=== PATIENT | female | born 1955 | race Caucasian/White ===

== ENCOUNTER 2019-11-15 13:42 | Observation (INO) | payer MEDICARE, OTHER ==
[2019-11-15] MEDS ORDERED: Sodium Chloride 0.9% 1,000 ML IV SCH (14:15)
[2019-11-15] MEDS ORDERED: Ketorolac 30 MG/ML SDV IVPUSH ONE (14:15)
[2019-11-15] MEDS ORDERED: Acetaminophen 500 MG Tab PO ONE (14:15)
[2019-11-15 14:29] LABS: CHLORIDE,CL 89 mEq/L (98-106); SODIUM,NA 125 mEq/L (136-145)
[2019-11-15] MEDS ORDERED: Ibuprofen 200 MG Tab PO PRN (15:28)
[2019-11-15] MEDS ORDERED: cefTRIAXone 1 GM Vial IVPUSH ONE (15:28)
[2019-11-15] MEDS ORDERED: Acetaminophen 325 MG Tab PO PRN (15:28)
[2019-11-15] MEDS ORDERED: Enoxaparin 30 MG/0.3 ML Syringe SUBCUT SCH ×2 (15:30→16:00)
[2019-11-15] MEDS ORDERED: Barium Sulfate Oral Susp 450 ML Bottle PO ONE (15:48)
[2019-11-15] MEDS ORDERED: Iopamidol 755 Mg/ML 100 ML Bottle IVPUSH ONE (15:48)
[2019-11-15] MEDS ORDERED: Enoxaparin 40 MG/0.4 ML Syringe SUBCUT SCH (16:00)
[2019-11-15] MEDS: NS + KCl 20mEq/L 1,000 ML IV SCH (16:13)
[2019-11-15] MEDS: Ketorolac 30 MG/ML SDV IVPUSH PRN (21:43)
[2019-11-16] MEDS: NS + KCl 20mEq/L 1,000 ML IV SCH ×2 (00:33→08:43)
[2019-11-16] MEDS: Ketorolac 30 MG/ML SDV IVPUSH PRN (05:33)
[2019-11-16] MEDS ORDERED: atorvaSTATin 10 MG Tab**OWN MED PO SCH ×2 (08:00)
[2019-11-16] MEDS ORDERED: LISINOPRIL HCTZ PO SCH (08:00)
[2019-11-16] MEDS ORDERED: Aspirin 81 MG Tab.EC PO SCH (08:00)
[2019-11-16] MEDS ORDERED: Hydrochlorothiazide 25 MG Tab PO SCH (08:00)
[2019-11-16] MEDS ORDERED: Lisinopril 20 MG Tab PO SCH (08:00)
[2019-11-16 13:42] VITALS: BP 96/52; PULSE 88
--- NOTE | 2019-11-16 14:02 | PCM.DCSUM1 ---
Discharge Summary - Hospital Course Free Text/Narrative:: The patient was brought into observation yesterday due to a mildly elevated white blood count as well as an elevated CRP, the patient did have a low potassium and low sodium. The patient main complaint was some lower back pain and it was unclear what was causing the pain as well as the elevation in the lab work. The patient did have a lumbar spine x-ray yesterday that showed multilevel endplate degenerative changes with slight irregularity of the vertebral body endplate most pronounced at L1 but no compression fracture or spondylolisthesis was noted. The patient also underwent a CT of the abdomen pelvis with oral contrast to rule out any acute abdominal pathology which did reveal superior endplate compression of L1 the age is indeterminate which is this patient's complaints are recent I suspect it is new. The CT also shows showed a 2.5 cm complex cystic lesion in the left mid kidney and they recommended CT renal mass protocol CT or MRI for further characterization. The patient's labs were repeated the white blood cell count is went to normal, the CRP has come down significantly. The potassium is come off at 3.3. The patient 's pain is been controlled. The patient was given Rocephin 1 g IV yesterday. The patient will be given 1 g IV of Rocephin today and she will be discharged home she will be given Percocet 5/325 mg 1 every 6 hours as needed for pain. The patient is to follow back up with Td this week in the office for referral for possible kyphoplasty. The patient is also advised to see Td for further evaluation of the kidney cystic lesion on the left as described in the CT see the CT again for complete details. All this is been discussed with the patient and she agrees with the disposition. HPI Initial Comments: As above Diagnosis: Stroke: No - Discharge Data Discharge Date: 11/16/19 Discharge Disposition: Home, Self-Care 01 Condition: Good - Referral to Home Health Primary Care Physician: Hollis Brewer PA-C - Patient Instructions Diet: Heart Healthy Diet Activity: As Tolerated Driving: Do Not Drive Showering/Bathing: May Shower Notify Provider of: Fever, Increased Pain, Nausea and/or Vomiting - Discharge Plan *PRESCRIPTION DRUG MONITORING PROGRAM REVIEWED*: Not Applicable *COPY OF PRESCRIPTION DRUG MONITORING REPORT IN PATIENT JOHN: Not Applicable Prescriptions/Med Rec: Cephalexin [Keflex] 500 mg PO TID 10 Days #30 capsule Home Medications: Home Meds Aspirin [Adult Low Dose Aspirin EC] 81 mg PO DAILY 11/15/19 [History] Cetirizine [ZyrTEC] 10 mg PO DAILY PRN 11/15/19 [History] Lisinopril/Hydrochlorothiazide [Lisinopril-Hctz 20-25 mg Tab] 1 tab PO DAILY [History] atorvaSTATin [Lipitor] 10 mg PO DAILY 11/15/19 [History] Cephalexin [Keflex] 500 mg PO TID 10 Days #30 capsule 11/16/19 [Rx] Patient Handouts: Vertebral Fracture, [id number], Urinary Tract Infection, Adult - Discharge Summary/Plan Comment DC Time >30 min.: No Discharge Summary/Plan Comment: As above - General Info Date of Service: 11/16/19 Functional Status: Reports: Pain Controlled, Tolerating Diet, Ambulating, Urinating - Review of Systems General: Reports: No Symptoms. Denies: Fever, Weakness HEENT: Reports: No Symptoms Pulmonary: Reports: No Symptoms. Denies: Shortness of Breath Cardiovascular: Reports: No Symptoms. Denies: Chest Pain Gastrointestinal: Reports: No Symptoms. Denies: Abdominal Pain, Constipation, Diarrhea, Nausea, Vomiting Genitourinary: Reports: No Symptoms Musculoskeletal: Reports: Back Pain Skin: Reports: No Symptoms. Denies: Bruising Neurological: Denies: Confusion, Headache, Numbness, Tingling Psychiatric: Reports: No Symptoms - Patient Data Vitals - Most Recent: Last Vital Signs Temp 37.1 C 11/16/19 12:00 Pulse 88 11/16/19 12:00 Resp 18 11/16/19 12:00 BP 96/52 L 11/16/19 12:00 Pulse Ox 98 11/16/19 08:00 Weight - Most Recent: 72.575 kg I&O - Last 24 hours: Intake & Output 11/15/19 11/16/19 11/16/19 22:59 06:59 14:59 Intake Total 1000 1400 Output Total 101 400 Balance -101 1000 1000 Lab Results - Last 24 hrs: Laboratory Results - last 24 hr 11/15/19 11/15/19 11/15/19 Range/Units 14:02 14:02 14:02 WBC 10.9 H (5.0-10.0) 10^3/uL RBC 4.05 (4.00-5.50) 10^6/uL Hgb 13.5 (12.0-16.0) g/dL Hct 37.8 (37.0-47.0) % MCV 93.3 (82.0-94.0) fL MCH 33.3 H (27.0-32.0) pg MCHC 35.7 (33.0-38.0) g/dL RDW Coeff of [place] 12.9 (11.0-15.0) % Plt Count 230 (150-400) 10^3/uL Neut % (Auto) 87.3 H (35-85) % Lymph % (Auto) 3.2 L (10-55) % [place] % (Auto) 9.0 (0-16) % Eos % (Auto) 0.2 (0-5) % Baso % (Auto) 0.3 (0-3) % Neut # (Auto) 9.49 H (1.80-7.00) 10^3/uL Lymph # (Auto) 0.35 L (1.00-4.80) 10^3/uL [place] # (Auto) 0.98 H (0.00-0.80) 10^3/uL Eos # (Auto) 0.02 (0.00-0.45) 10^3/uL Baso # (Auto) 0.03 10^3/uL Add Manual Diff Neutrophils % (Manual) (35-85) % Band Neutrophils % (0-5) % Lymphocytes % (Manual) (21-55) % Monocytes % (Manual) (2-12) % Eosinophils % (Manual) (0-5) % Absolute Neutrophils (1.80-7.00) 10^3/uL Lymphocytes # (Manual) (1.00-4.80) 10^3/uL Monocytes # (Manual) (0.00-0.80) 10^3/uL Eosinophils # (Manual) (0.00-0.45) 10^3/uL Sodium 125 L (136-145) mEq/L Potassium 2.9 L* D (3.5-5.0) mEq/L Chloride 89 L (98-106) mEq/L Carbon Dioxide 21 (21-32) mmol/L BUN 19 H D (7-18) mg/dL Creatinine 1.1 H (0.6-1.0) mg/dL Est Cr Clr Drug Dosing TNP Estimated GFR (MDRD) 50 L (>=60) mL/min Glucose 129 H (75-99) mg/dL Lactic Acid 1.7 (0.4-2.0) mmol/L Calcium 8.6 (8.4-10.1) mg/dL Magnesium (1.8-2.4) mg/dL Total Bilirubin 0.8 (0.0-1.0) mg/dL AST 25 (15-37) U/L ALT 37 (12-78) U/L Alkaline Phosphatase 107 (46-116) U/L C-Reactive Protein 19.6 H (0.2-0.8) mg/dL Total Protein 7.5 (6.4-8.2) g/dL Albumin 3.3 L (3.4-5.0) g/dL Urine Color (YELLOW) Urine Appearance (CLEAR) Urine pH (4.5-8.0) Ur Specific [place] (1.003-1.020) Urine Protein (NEGATIVE) mg/dL Urine Glucose (UA) (NEGATIVE) mg/dL Urine Ketones (NEGATIVE) mg/dL Urine Occult Blood (NEGATIVE) Urine Nitrite (NEGATIVE) Urine Bilirubin (NEGATIVE) Urine Urobilinogen (0.2-1.0) EU/dL Ur Leukocyte Esterase (NEGATIVE) Urine RBC (0-5) /HPF Urine WBC (0-5) /HPF Urine WBC Clumps (NOT SEEN) /HPF Ur Squamous Epith Cells (NOT SEEN) /HPF Urine Bacteria (NOT SEEN) /HPF Urinalysis Comment 11/15/19 11/15/19 11/16/19 Range/Units 15:33 19:09 06:50 WBC 7.9 (5.0-10.0) 10^3/uL RBC 3.41 L (4.00-5.50) 10^6/uL Hgb 11.2 L (12.0-16.0) g/dL Hct 32.9 L (37.0-47.0) % MCV 96.5 H (82.0-94.0) fL MCH 32.8 H (27.0-32.0) pg MCHC 34.0 (33.0-38.0) g/dL RDW Coeff of [place] 12.9 (11.0-15.0) % Plt Count 181 (150-400) 10^3/uL Neut % (Auto) (35-85) % Lymph % (Auto) (10-55) % [place] % (Auto) (0-16) % Eos % (Auto) (0-5) % Baso % (Auto) (0-3) % Neut # (Auto) (1.80-7.00) 10^3/uL Lymph # (Auto) (1.00-4.80) 10^3/uL [place] # (Auto) (0.00-0.80) 10^3/uL Eos # (Auto) (0.00-0.45) 10^3/uL Baso # (Auto) 10^3/uL Add Manual Diff Yes Neutrophils % (Manual) 63 (35-85) % Band Neutrophils % 25 H (0-5) % Lymphocytes % (Manual) 7 L (21-55) % Monocytes % (Manual) 3 (2-12) % Eosinophils % (Manual) 2 (0-5) % Absolute Neutrophils 6.95 (1.80-7.00) 10^3/uL Lymphocytes # (Manual) 0.55 L (1.00-4.80) 10^3/uL Monocytes # (Manual) 0.24 (0.00-0.80) 10^3/uL Eosinophils # (Manual) 0.16 (0.00-0.45) 10^3/uL Sodium (136-145) mEq/L Potassium (3.5-5.0) mEq/L Chloride (98-106) mEq/L Carbon Dioxide (21-32) mmol/L BUN (7-18) mg/dL Creatinine (0.6-1.0) mg/dL Est Cr Clr Drug Dosing Estimated GFR (MDRD) (>=60) mL/min Glucose (75-99) mg/dL Lactic Acid (0.4-2.0) mmol/L Calcium (8.4-10.1) mg/dL Magnesium 1.4 L (1.8-2.4) mg/dL Total Bilirubin (0.0-1.0) mg/dL AST (15-37) U/L ALT (12-78) U/L Alkaline Phosphatase (46-116) U/L C-Reactive Protein (0.2-0.8) mg/dL Total Protein (6.4-8.2) g/dL Albumin (3.4-5.0) g/dL Urine Color Dark yellow (YELLOW) Urine Appearance Cloudy (CLEAR) Urine pH 5.5 (4.5-8.0) Ur Specific [place] <= 1.005 (1.003-1.020) Urine Protein Negative (NEGATIVE) mg/dL Urine Glucose (UA) Negative (NEGATIVE) mg/dL Urine Ketones Negative (NEGATIVE) mg/dL Urine Occult Blood Moderate H (NEGATIVE) Urine Nitrite Negative (NEGATIVE) Urine Bilirubin Negative (NEGATIVE) Urine Urobilinogen 0.2 (0.2-1.0) EU/dL Ur Leukocyte Esterase Trace H (NEGATIVE) Urine RBC 0-5 (0-5) /HPF Urine WBC 50-75 H (0-5) /HPF Urine WBC Clumps Few H (NOT SEEN) /HPF Ur Squamous Epith Cells Few H (NOT SEEN) /HPF Urine Bacteria Few H (NOT SEEN) /HPF Urinalysis Comment See note 11/16/19 Range/Units 06:50 WBC (5.0-10.0) 10^3/uL RBC (4.00-5.50) 10^6/uL Hgb (12.0-16.0) g/dL Hct (37.0-47.0) % MCV (82.0-94.0) fL MCH (27.0-32.0) pg MCHC (33.0-38.0) g/dL RDW Coeff of [place] (11.0-15.0) % Plt Count (150-400) 10^3/uL Neut % (Auto) (35-85) % Lymph % (Auto) (10-55) % [place] % (Auto) (0-16) % Eos % (Auto) (0-5) % Baso % (Auto) (0-3) % Neut # (Auto) (1.80-7.00) 10^3/uL Lymph # (Auto) (1.00-4.80) 10^3/uL [place] # (Auto) (0.00-0.80) 10^3/uL Eos # (Auto) (0.00-0.45) 10^3/uL Baso # (Auto) 10^3/uL Add Manual Diff Neutrophils % (Manual) (35-85) % Band Neutrophils % (0-5) % Lymphocytes % (Manual) (21-55) % Monocytes % (Manual) (2-12) % Eosinophils % (Manual) (0-5) % Absolute Neutrophils (1.80-7.00) 10^3/uL Lymphocytes # (Manual) (1.00-4.80) 10^3/uL Monocytes # (Manual) (0.00-0.80) 10^3/uL Eosinophils # (Manual) (0.00-0.45) 10^3/uL Sodium 131 L (136-145) mEq/L Potassium 3.3 L (3.5-5.0) mEq/L Chloride 97 L (98-106) mEq/L Carbon Dioxide 24 (21-32) mmol/L BUN 17 (7-18) mg/dL Creatinine 1.0 (0.6-1.0) mg/dL Est Cr Clr Drug Dosing 57.83 Estimated GFR (MDRD) 55 L (>=60) mL/min Glucose 100 H (75-99) mg/dL Lactic Acid (0.4-2.0) mmol/L Calcium 7.5 L (8.4-10.1) mg/dL Magnesium (1.8-2.4) mg/dL Total Bilirubin (0.0-1.0) mg/dL AST (15-37) U/L ALT (12-78) U/L Alkaline Phosphatase (46-116) U/L C-Reactive Protein 11.0 H (0.2-0.8) mg/dL Total Protein (6.4-8.2) g/dL Albumin (3.4-5.0) g/dL Urine Color (YELLOW) Urine Appearance (CLEAR) Urine pH (4.5-8.0) Ur Specific [place] (1.003-1.020) Urine Protein (NEGATIVE) mg/dL Urine Glucose (UA) (NEGATIVE) mg/dL Urine Ketones (NEGATIVE) mg/dL Urine Occult Blood (NEGATIVE) Urine Nitrite (NEGATIVE) Urine Bilirubin (NEGATIVE) Urine Urobilinogen (0.2-1.0) EU/dL Ur Leukocyte Esterase (NEGATIVE) Urine RBC (0-5) /HPF Urine WBC (0-5) /HPF Urine WBC Clumps (NOT SEEN) /HPF Ur Squamous Epith Cells (NOT SEEN) /HPF Urine Bacteria (NOT SEEN) /HPF Urinalysis Comment SY Results - Last 24 hrs: Microbiology 11/15/19 14:02 Influenza Type A Antigen Screen - Final Nasopharyngeal Swab NEGATIVE INFLUENZA A VIRUS AG REFERENCE RANGE: NEGATIVE Influenza Type B Antigen Screen - Final NEGATIVE INFLUENZA B VIRUS AG REFERENCE RANGE: NEGATIVE Med Orders - Current: Current Medications Acetaminophen (Tylenol) 650 mg PO Q4H PRN PRN Reason: Pain (Mild 1-3)/fever Last Admin: 11/16/19 08:07 Dose: 650 mg Aspirin (Halfprin) 81 mg PO DAILY [facility] Last Admin: 11/16/19 08:46 Dose: 81 mg Atorvastatin Calcium (Lipitor) 10 mg PO DAILY [facility] Last Admin: 11/16/19 08:46 Dose: 10 mg Enoxaparin Sodium (Lovenox) 40 mg SUBCUT Q24H [facility] Last Admin: 11/15/19 16:12 Dose: 40 mg Potassium Chloride/Sodium Chloride (Normal Saline With 20 Meq Kcl) 1,000 mls @ 125 mls/hr IV ASDIRECTED [facility] Last Admin: 11/16/19 08:43 Dose: 125 mls/hr Ibuprofen (Motrin) 400 mg PO Q6H PRN PRN Reason: Pain (mild 1-3) Last Admin: 11/16/19 05:48 Dose: 400 mg Ketorolac Tromethamine (Toradol) 30 mg IVPUSH Q8H PRN PRN Reason: Pain Stop: 11/20/19 22:01 Last Admin: 11/16/19 05:33 Dose: 30 mg Lisinopril-Hctz 20- (25mg TabOwn Med) 1 each PO DAILY [facility] Last Admin: 11/16/19 08:46 Dose: 1 each Discontinued Medications Acetaminophen (Tylenol Extra Strength) 1,000 mg PO ONETIME ONE Stop: 11/15/19 14:16 Last Admin: 11/15/19 14:31 Dose: 1,000 mg Atorvastatin Calcium (Lipitor) 10 mg PO DAILY [facility] Barium Sulfate (Readi-Cat 2) 900 ml PO ONETIME ONE Stop: 11/15/19 15:49 Last Admin: 11/15/19 19:11 Dose: 900 ml Ceftriaxone Sodium (Rocephin) 1 gm IVPUSH ONETIME ONE Stop: 11/15/19 15:29 Last Admin: 02/21/20 16:11 Dose: 1 gm Enoxaparin Sodium (Lovenox) 30 mg SUBCUT Q24H [facility] Last Admin: 11/15/19 16:12 Dose: Not Given Enoxaparin Sodium (Lovenox) 40 mg SUBCUT Q24H [facility] Hydrochlorothiazide (Hydrochlorothiazide) 25 mg PO DAILY [facility] Sodium Chloride (Normal Saline) 1,000 mls @ 500 mls/hr IV ASDIRECTED [facility] Stop: 11/16/19 16:14 Last Admin: 11/15/19 14:29 Dose: 500 mls/hr Iopamidol (Isovue-370 (76%)) 100 ml IVPUSH ONETIME ONE Stop: 11/15/19 15:49 Last Admin: 11/15/19 19:11 Dose: 100 ml Ketorolac Tromethamine (Toradol) 30 mg IVPUSH ONETIME ONE Stop: 11/15/19 14:16 Last Admin: 11/15/19 14:30 Dose: 30 mg Lisinopril (Prinivil) 20 mg PO DAILY [facility] - Exam General: Reports: Alert, Oriented, Cooperative, No Acute Distress Neck: Reports: Supple, Trachea Midline Lungs: Reports: Clear to Auscultation, Normal Respiratory Effort Cardiovascular: Reports: Regular Rate, Regular Rhythm GI/Abdominal Exam: Normal Bowel Sounds, Soft, Non-Tender Back Exam: Reports: Normal Inspection, Full Range of Motion Extremities: Normal Inspection, Normal Range of Motion, Non-Tender, No Pedal Edema, Normal Capillary Refill Skin: Reports: Warm, Dry, Intact Neurological: Reports: No New Focal Deficit Psy/Mental Status: Reports: Alert, Normal Affect, Normal Mood
[2019-11-16] MEDS ORDERED: cefTRIAXone 1 GM Vial IVPUSH ONE (14:08)
[2019-11-16] MEDS ORDERED: Take Home: Acetaminophen/oxyCODONE 325-5 MG, 2 Tab Pack PO ONE (14:09)
[2019-11-16] MEDS ORDERED: Take Home: Cephalexin 500 MG Cap, 4 Cap Pack PO ONE (14:09)
[2019-11-16] MEDS ORDERED: Potassium Chloride 10% 20 MEQ/15 ML Soln 15 ML UD Cup PO ONE (14:11)
[2019-11-16] MEDS ORDERED: Potassium Chloride 10 MEQ Tab.ER PO ONE (14:20)
[2019-11-16] MEDS ORDERED: Acetaminophen/oxyCODONE 325-5 MG Tab PO ONE (15:14)
[2019-11-16] MEDS ORDERED: Cephalexin 500 MG Cap PO ONE (15:14)
== END 2019-11-16 15:15 | disposition home or self-care (01) ==
LOC: CC.MS 13:42 → CC.FCMC 13:42 → CC.MS 14:57 → UNDOADMOB 14:57 → CC.MS 15:28
PROVIDERS: ADMIT Physician Assistant Medical; ATTEND Family Medicine
DX: D72.829 Elevated white blood cell count, unspecified (principal); R79.82 Elevated C-reactive protein (CRP); E87.6 Hypokalemia; E87.1 Hypo-osmolality and hyponatremia; M54.5 Low back pain; R50.9 Fever, unspecified; N28.1 Cyst of kidney, acquired; I10 Essential (primary) hypertension; M51.36 Other intervertebral disc degeneration, lumbar region; M19.90 Unspecified osteoarthritis, unspecified site; F17.210 Nicotine dependence, cigarettes, uncomplicated; F17.200 Nicotine dependence, unspecified, uncomplicated; Z79.82 Long term (current) use of aspirin; Z79.899 Other long term (current) drug therapy
CPT/HCPCS: 36415; 72110; 74177; 80048; 80053; 81001; 83605; 83735; 85025; 86140; 87040; 87086; 87186; 87804; 96361; 96365; 96366; 96372; 96375; 96376; A9270-GY; G0378; J0696; J1650; J1885; J3480; J7030; Q9967

== ENCOUNTER 2020-04-18 10:25 | Emergency (ER) | payer MEDICARE, OTHER ==
[2020-04-18] MEDS ORDERED: Morphine 4 MG/ML VIAL IVPUSH ONE ×2 (10:54→12:49)
[2020-04-18] MEDS ORDERED: Ondansetron 4 MG/2 ML SDV IVPUSH STA ×2 (10:54→12:50)
--- NOTE | 2020-04-18 10:56 | EDM.PDOC ---
ED HPI GENERAL MEDICAL PROBLEM - General Chief Complaint: General Stated Complaint: right shoulder/mid back pain Time Seen by Provider: 04/18/20 10:47 Source of Information: Reports: Patient History Limitations: Reports: No Limitations - History of Present Illness INITIAL COMMENTS - FREE TEXT/NARRATIVE: This patient is a 65 year old female that presents to the ER. Patient reports that last night at 11pm she was walking up steps, when she lost her footing and fell backwards down 5 steps. She reports landing on her right side and right shoulder. Patient denies hitting her head, loc, n, v, vision changes, neck pain. Patient reports pain is at right shoulder, right upper back, and right chest. She reports it hurts to take big deep breaths. Patient reports that her right shoulder hurts to move. She reports that she was able to get up and walk after her fall. Onset Date: 04/17/20 Onset Time: 23:00 Location: Reports: Chest, Back, Upper Extremity, Right Front/Back Body Image: 1 - eccymosis 2 - pain, tenderness. 3 - pain tenderness 4 - pain, tenderness. 5 - pain, tenderness. Quality: Reports: Sharp Severity: Moderate Improves with: Reports: Immobilization Worsens with: Reports: Movement Associated Symptoms: Reports: Chest Pain (rght sided). Denies: Confusion, Cough, cough w sputum, Diaphoresis, Fever/Chills, Headaches, Loss of Appetite, Malaise, Nausea/Vomiting, Rash, Seizure, Shortness of Breath, Syncope, Weakness Right Shoulder Pain Score (Numeric/FACES): 9 - Related Data Allergies Allergy/AdvReac Type Severity Reaction Status Date / Time No Known Allergies Allergy Verified 04/18/20 10:48 Home Meds: Home Meds Aspirin [Adult Low Dose Aspirin EC] 81 mg PO DAILY 11/15/19 [History] Cetirizine [ZyrTEC] 10 mg PO DAILY PRN 11/15/19 [History] Lisinopril/Hydrochlorothiazide [Lisinopril-Hctz 20-25 mg Tab] 1 tab PO DAILY 11/15/19 [History] atorvaSTATin [Lipitor] 10 mg PO DAILY 11/15/19 [History] Calcium Carbonate [Calcium] 500 mg PO DAILY 04/18/20 [History] Cholecalciferol (Vitamin D3) [Vitamin D3] 5,000 unit PO DAILY 04/18/20 [History] Multivitamin [Multivitamins] 1 each PO DAILY 04/18/20 [History] Turmeric Root Extract [Turmeric] 500 mg PO DAILY 04/18/20 [History] Past Medical History Cardiovascular History: Reports: High Cholesterol, Hypertension - Past Surgical History GI Surgical History: Reports: Cholecystectomy Female Surgical History: Reports: Section ED ROS GENERAL - Review of Systems Review Of Systems: See Below Constitutional: Reports: No Symptoms HEENT: Reports: No Symptoms Respiratory: Reports: Other (Right side chest pain). Denies: Cough, Sputum Cardiovascular: Reports: No Symptoms. Denies: Dyspnea on Exertion, Edema, Lightheadedness, Palpitations, Syncope Endocrine: Reports: No Symptoms GI/Abdominal: Reports: No Symptoms. Denies: Abdominal Pain, Nausea, Vomiting : Reports: No Symptoms. Denies: Incontinence Musculoskeletal: Reports: Shoulder Pain (right), Back Pain (right upper), Other (right chest) Skin: Reports: Bruising (right shoulder) Neurological: Reports: No Symptoms Psychiatric: Reports: No Symptoms Hematologic/Lymphatic: Reports: No Symptoms Immunologic: Reports: No Symptoms ED EXAM, GENERAL - Physical Exam Exam: See Below Exam Limited By: No Limitations General Appearance: Alert, WD/WN, No Apparent Distress, Other (in pain. holding right shoulder in arm sling position) Eye Exam: Bilateral Eye: EOMI, Normal Inspection, PERRL Ears: Normal External Exam, Normal Canal, Hearing Grossly Normal, Normal TMs Ear Exam: Bilateral Ear: Auricle Normal, Canal Normal, TM normal Nose: Normal Inspection, Normal Mucosa, No Blood Throat/Mouth: Normal Inspection, Normal Lips, Normal Teeth, Normal Gums, Normal Oropharynx, Normal Voice, No Airway Compromise Head: Atraumatic, Normocephalic. No: Facial Swelling, Facial Tenderness, Sinus Tenderness Neck: Normal Inspection, Supple, Non-Tender, Full Range of Motion. No: Tender Lateral, Tender Midline Respiratory/Chest: No Accessory Muscle Use, Rhonchi (throughout), Splinting (right side), Other (Right lateral chest tenderness over multiple ribs.). No: Decreased Breath Sounds, Accessory Muscle Use Cardiovascular: Normal Peripheral Pulses, Regular Rate, Rhythm, No Edema, No Gallop, No JVD, No Murmur, No Rub Peripheral Pulses: 2+: Radial (L), Radial (R), Posterior Tibial (L), Posterior Tibial (R) GI/Abdominal: Non-Tender, No Organomegaly, Pelvis Stable (Female) Exam: Deferred Rectal (Female) Exam: Deferred Back Exam: Normal Inspection, Full Range of Motion, Other (Tenderness over the right posterior scapula.). No: CVA Tenderness (L), CVA Tenderness (R), Decreased Range of Motion, Muscle Spasm, Paraspinal Tenderness, Vertebral Tenderness Extremities: No Pedal Edema, Normal Capillary Refill, Limited Range of Motion (Right shoulder in arm sling position, pain, tenderness anterior and posterior. Ecchymosis top of shoulder. ), Other (pulses +2, cap refill < 2 sec. Sensory intact. Patient does have some ROM to the right shoulder, but very limited due to pain.) Neurological: Alert, Oriented, CN II-XII Intact, Normal Cognition, Normal Gait, No Motor/Sensory Deficits Psychiatric: Anxious, Tearful Skin Exam: Warm, Dry, Intact, No Rash, Ecchymosis (top of right shoulder) Lymphatic: No Adenopathy EKG INTERPRETATION EKG Date: 04/18/20 Time: 12:42 Rate (Beats/Min): 64 ST-T: Normal Comparison: NA - No Prior EKG Course - Vital Signs Last Recorded V/S: Last Vital Signs Temp 97.2 F 04/18/20 10:30 Pulse 81 04/18/20 10:30 Resp 20 04/18/20 10:30 BP 126/72 04/18/20 10:30 Pulse Ox 93 L 04/18/20 11:57 - Orders/Labs/Meds Orders: Active Orders 24 hr Category Date Time Status Cervical Spine wo Cont [CT] Stat Exams 04/18/20 12:01 Taken Head wo Cont [CT] Stat Exams 04/18/20 12:01 Taken Ribs 2V w Chest Rt [CR] Stat Exams 04/18/20 10:56 Taken Scapula Rt [CR] Stat Exams 04/18/20 10:56 Taken Shoulder Comp Rt [CR] Stat Exams 04/18/20 10:56 Taken Sodium Chloride 0.9% [Normal Saline] 1,000 ml Med 04/18/20 12:38 Active IV .BOLUS Medication Orders Sodium Chloride (Normal Saline) 1,000 mls @ 1,000 mls/hr IV .BOLUS ONE Stop: 04/18/20 13:37 Last Admin: 04/18/20 12:52 Dose: 1,000 mls/hr Documented by: MOUNA Labs: Laboratory Tests 04/18/20 04/18/20 04/18/20 Range/Units 11:57 11:57 11:57 WBC 15.7 H (5.0-10.0) 10^3/uL RBC 4.23 (4.00-5.50) 10^6/uL Hgb 14.1 (12.0-16.0) g/dL Hct 39.1 (37.0-47.0) % MCV 92.4 (82.0-94.0) fL MCH 33.3 H (27.0-32.0) pg MCHC 36.1 (33.0-38.0) g/dL RDW Coeff of Marvin 11.9 (11.0-15.0) % Plt Count 357 (150-400) 10^3/uL Neut % (Auto) 90.3 H (35-85) % Lymph % (Auto) 4.8 L (10-55) % [place] % (Auto) 4.7 (0-16) % Eos % (Auto) 0.1 (0-5) % Baso % (Auto) 0.1 (0-3) % Neut # (Auto) 14.18 H (1.80-7.00) 10^3/uL Lymph # (Auto) 0.75 L (1.00-4.80) 10^3/uL [place] # (Auto) 0.73 (0.00-0.80) 10^3/uL Eos # (Auto) 0.01 (0.00-0.45) 10^3/uL Baso # (Auto) 0.02 10^3/uL PT 9.8 (9.7-12.3) SEC INR 0.97 (0.92-1.18) Sodium 122 L* (136-145) mEq/L Potassium 3.2 L (3.5-5.0) mEq/L Chloride 85 L (98-106) mEq/L Carbon Dioxide 26 (21-32) mmol/L BUN 7 (7-18) mg/dL Creatinine 0.7 (0.6-1.0) mg/dL Est Cr Clr Drug Dosing 81.50 mL/min Estimated GFR (MDRD) > 60 (>=60) mL/min Glucose 124 H (75-99) mg/dL Calcium 8.7 (8.4-10.1) mg/dL Total Bilirubin 0.9 (0.0-1.0) mg/dL AST 38 H (15-37) U/L ALT 29 (12-78) U/L Alkaline Phosphatase 81 (46-116) U/L Lactate Dehydrogenase 216 H (100-190) U/L Creatine Kinase 896 H (21-215) U/L Troponin I < 0.017 (0.00-0.06) ng/mL Total Protein 7.7 (6.4-8.2) g/dL Albumin 3.9 (3.4-5.0) g/dL Amylase 59 (25-115) U/L Lipase 77 (73-393) U/L Meds: Medications Generic Name Dose Route Start Last Admin Trade Name Freq PRN Reason Stop Dose Admin Sodium Chloride 1,000 mls @ 1,000 mls/hr 04/18/20 12:38 04/18/20 12:52 Normal Saline IV 04/18/20 13:37 1,000 mls/hr .BOLUS ONE Administration Discontinued Medications Generic Name Dose Route Start Last Admin Trade Name Freq PRN Reason Stop Dose Admin Morphine Sulfate 4 mg 04/18/20 10:54 04/18/20 11:00 Morphine IVPUSH 04/18/20 10:55 4 mg ONETIME ONE Administration Morphine Sulfate 4 mg 04/18/20 12:49 04/18/20 13:03 Morphine IVPUSH 04/18/20 12:50 4 mg ONETIME ONE Administration Ondansetron HCl 4 mg 04/18/20 10:54 04/18/20 11:00 Zofran IVPUSH 04/18/20 10:55 4 mg NOW STA Administration Ondansetron HCl 8 mg 04/18/20 12:50 04/18/20 13:02 Zofran IVPUSH 04/18/20 12:51 8 mg NOW STA Administration - Radiology Interpretation Free Text/Narrative:: Chest with right ribs xray: there are fractures involving the posterior aspects of the fourth, fifth, as well as the lateral aspect of the sixth rib with only minimal displacement. No visible pneumothorax. No effusion is seen. There is minimal atelectasis or scarring in the left lung base. Cardiac silhouette is unremarkable. Scapula: Scapula fracture Shoulder: I do not see fracture of shoulder/humerus. - Re-Assessments/Exams Free Text/Narrative Re-Assessment/Exam: 04/18/20 11:58 Patient reports her pain is now a 5/10, was 10/10 upon exam. Patient oxygen sat uration is now 88-91% on RA, RN applied 2L NC. color television console monitor applied by RN. I reviewed images. Multiple fractures. Patient trauma code activated once images reviewed and desaturation after pain medication with multiple rib fractures. lab was ordered. CTs of the head and cervical will be done, as now patient is unaware if she hit her head or not. She is alert and oriented at this time. 04/18/20 11:59 I called and spoke to Dr. Pastrana at [facility] ER about this patient. He has accepted the transfer. Will transfer this patient. I then went and spoke to the patient about this, she has agreed to the transfer. ALS transfer was paged out. 04/18/20 12:10 EMS called and reported they are just waiting on a staff member to arrive to transport patient. 04/18/20 12:39 RN informed me of critical sodium of 122, I called [facility] again to see what treatment they would like for this. NS 1 L Bolus to be given. Patient does report that she drinks "occasionally" She reports drinking a few [place] coolers last night. Rn reports patient vomited x2 after medications and having more pain again. Gave more morphine and zofran. 04/18/20 13:03 I called and spoke to patient Vini is who patient wanted me to speak too. He was picking her some items at home and is right outside door. He agrees with transfer. Departure - Departure Time of Disposition: 12:39 Disposition: Home, Self-Care 01 Condition: Serious Clinical Impression: Trauma, Hyponatremia Right scapula fracture Qualifiers: Encounter type: initial encounter Scapula location: unspecified part of scapula Fracture type: closed Qualified Code(s): S42.101A - Fracture of unspecified part of scapula, right shoulder, initial encounter for closed fracture Multiple rib fractures Qualifiers: Encounter type: initial encounter Fracture type: closed Laterality: right Qualified Code(s): S22.41XA - Multiple fractures of ribs, right side, initial encounter for closed fracture - Discharge Information *PRESCRIPTION DRUG MONITORING PROGRAM REVIEWED*: Not Applicable *COPY OF PRESCRIPTION DRUG MONITORING REPORT IN PATIENT JOHN: Not Applicable Referrals: Hollis Brewer PA-C [Primary Care Provider] - Forms: ED Department Discharge Sepsis Event Note (ED) - Evaluation Sepsis Screening Result: No Definite Risk - Focused Exam Vital Signs: Vital Signs Temp Pulse Resp BP Pulse Ox Pulse Ox 04/18/20 11:57 93 L 04/18/20 10:30 97.2 F 81 20 126/72 97 - My Orders Last 24 Hours: My Active Orders 04/18/20 10:56 Ribs 2V w Chest Rt [CR] Stat Scapula Rt [CR] Stat Shoulder Comp Rt [CR] Stat 04/18/20 12:01 Cervical Spine wo Cont [CT] Stat Head wo Cont [CT] Stat 04/18/20 12:38 Sodium Chloride 0.9% [Normal Saline] 1,000 ml IV .BOLUS - Assessment/Plan Last 24 Hours: My Active Orders 04/18/20 10:56 Ribs 2V w Chest Rt [CR] Stat Scapula Rt [CR] Stat Shoulder Comp Rt [CR] Stat 04/18/20 12:01 Cervical Spine wo Cont [CT] Stat Head wo Cont [CT] Stat 04/18/20 12:38 Sodium Chloride 0.9% [Normal Saline] 1,000 ml IV .BOLUS Plan: [PLEASE SEE RN NOTE FOR PFSH. Patient is being transferred to [facility]. Risk vs benefits explained to the patient and she has agreed to the transfer. Risk of transfer are mvc, , shortness of breath, cardiac arrest. The risk of staying in [place] is no trauma team, , worsening of condition. They benefits of transfer are higher level of care, trauma team. The benefits of staying in [place] is close to home.
[2020-04-18 12:21] LABS: CHLORIDE,CL 85 mEq/L (98-106)
[2020-04-18 12:25] LABS: SODIUM,NA 122 mEq/L (136-145)
[2020-04-18] MEDS ORDERED: Sodium Chloride 0.9% 1,000 ML IV ONE (12:38)
== END 2020-04-18 13:22 | disposition home or self-care (01) ==
LOC: CC.ED 10:25
DX: S22.41XA Multiple fractures of ribs, right side, initial encounter for closed fracture (principal); S42.101A Fracture of unspecified part of scapula, right shoulder, initial encounter for closed fracture; E87.1 Hypo-osmolality and hyponatremia; I10 Essential (primary) hypertension; E78.00 Pure hypercholesterolemia, unspecified; R11.10 Vomiting, unspecified; Z98.890 Other specified postprocedural states; Z79.82 Long term (current) use of aspirin; Z79.899 Other long term (current) drug therapy; W10.8XXA Fall (on) (from) other stairs and steps, initial encounter; Y93.01 Activity, walking, marching and hiking
CPT/HCPCS: 36415; 70450; 71101-RT; 72125; 73010-RT; 73030-RT; 80053; 82150; 82550; 83615; 83690; 84484; 85025; 85610; 93005; 94761; 96374; 96375; 96376; 99284; 99284-25; J2270; J2405; J7030

== ENCOUNTER 2022-02-03 15:53 | Observation (INO) | payer MEDICARE, OTHER ==
[2022-02-03 16:17] LABS: CHLORIDE,CL 89 mEq/L (98-106); SODIUM,NA 126 mEq/L (136-145)
[2022-02-03] MEDS ORDERED: Ondansetron 4 MG/2 ML SDV IVPUSH PRN (17:32)
[2022-02-03] MEDS: Pantoprazole 40 MG Vial IVPUSH SCH (17:44)
[2022-02-03] MEDS: Ondansetron 4 MG/2 ML SDV IV ONE (17:44)
[2022-02-03] MEDS: Sodium Chloride 0.9% 1,000 ML IV SCH ×2 (17:51→23:26)
[2022-02-03] MEDS: Levofloxacin/Dextrose 5%-Water 750 MG in Premix Bag 1 BAG IV SCH (17:51)
[2022-02-03] MEDS ORDERED: Ketorolac 30 MG/ML SDV IVPUSH PRN (19:42)
[2022-02-03] MEDS: Acetaminophen 325 MG Tab PO PRN (19:54)
[2022-02-04 07:36] LABS: CHLORIDE,CL 96 mEq/L (98-106); SODIUM,NA 130 mEq/L (136-145)
[2022-02-04] MEDS ORDERED: Aspirin 81 MG Tab.EC PO SCH (08:00)
[2022-02-04] MEDS ORDERED: Hydrochlorothiazide 25 MG Tab PO SCH (08:00)
[2022-02-04] MEDS ORDERED: Lisinopril 20 MG Tab PO SCH (08:00)
[2022-02-04] MEDS: Potassium Chloride 10 MEQ Tab.ER PO SCH (08:44)
[2022-02-04] MEDS ORDERED: atorvaSTATin 10 MG Tab PO SCH (20:00)
== END 2022-02-04 14:00 | disposition home or self-care (01) ==
LOC: CC.MS 15:53 → CC.FCMC 15:53 → CC.MS 16:48 → UNDOADMOB 16:48 → CC.MS 16:53
PROVIDERS: ADMIT Nurse Practitioner Family; ATTEND Nurse Practitioner Family
DX: N39.0 Urinary tract infection, site not specified (principal); E87.1 Hypo-osmolality and hyponatremia; R31.9 Hematuria, unspecified; E78.00 Pure hypercholesterolemia, unspecified; I10 Essential (primary) hypertension; F17.200 Nicotine dependence, unspecified, uncomplicated; Z79.82 Long term (current) use of aspirin; Z79.899 Other long term (current) drug therapy
CPT/HCPCS: 36415; 80053; 81001; 82150; 85025; 86140; 87086; 87088; 87186; 96365; A9270-GY; G0378; J1956; J7030

== ENCOUNTER 2023-11-01 09:03 | Emergency (ER) | payer MEDICARE ==
[2023-11-01] MEDS: HYDROmorphone 0.5 MG/0.5 ML Syringe IVPUSH ONE (09:56)
[2023-11-01] MEDS: Ondansetron 4 MG/2 ML SDV IVPUSH PRN (09:57)
== END 2023-11-01 10:58 | disposition home or self-care (01) ==
LOC: CC.ED 09:03
DX: S42.291A Other displaced fracture of upper end of right humerus, initial encounter for closed fracture (principal); I10 Essential (primary) hypertension; E78.00 Pure hypercholesterolemia, unspecified; F17.210 Nicotine dependence, cigarettes, uncomplicated; Z90.710 Acquired absence of both cervix and uterus; Z90.49 Acquired absence of other specified parts of digestive tract; Z79.82 Long term (current) use of aspirin; Z79.899 Other long term (current) drug therapy; W00.9XXA Unspecified fall due to ice and snow, initial encounter
CPT/HCPCS: 73060-LT; 96374; 96375; 99283-25; J1170; J2405

== ENCOUNTER 2024-09-25 12:24 | Inpatient (IN) | payer MEDICARE ==
[2024-09-25] MEDS: Ondansetron 4 MG/2 ML SDV IVPUSH STA (12:55)
[2024-09-25] MEDS: Sodium Chloride 0.9% 1,000 ML IV ONE ×2 (12:55→14:58)
[2024-09-25 13:10] LABS: BILIRUBIN TOTAL 0.5 mg/dL (0.0-1.0); C-REACTIVE PROTEIN 3.96 mg/dL (<=0.50); CALCIUM 9.4 mg/dL (8.4-10.1); CREATININE 2.5 mg/dL (0.6-1.0); EST CRCL DRUG DOSING (CG) 21.19 mL/min; MAGNESIUM 1.8 mg/dL (1.8-2.4); PROTEIN TOTAL,TP 8.8 g/dL (6.4-8.2)
[2024-09-25 13:39] LABS: POTASSIUM,K 3.5 mEq/L (3.5-5.0)
[2024-09-25 14:11] LABS: TSH ULTRASENSITIVE 2.97 uIU/mL (0.36-5.60)
[2024-09-25 14:42] LABS: BASOPHILS ABSOLUTE AUTO 0.05 10^3/uL (0.00-0.50); BASOPHILS PERCENT AUTO 0.3 % (0-1); HEMATOCRIT 47.5 % (37.0-47.0); HEMOGLOBIN 16.3 g/dL (12.0-16.0); IMMATURE GRAN ABSOLUTE AUTO 0.05 10^3/uL (0.00-0.49); IMMATURE GRAN PERCENT AUTO 0.3 % (0.0-4.9); LYMPHOCYTES ABSOLUTE AUTO 0.96 10^3/uL (0.60-5.00); LYMPHOCYTES PERCENT AUTO 5.6 % (24-44); MEAN CORPUSCULAR HEMOGLOBIN 33.1 pg (27.0-32.0); MEAN CORPUSCULAR HGB CONC 34.3 g/dL (32.0-36.0); MEAN CORPUSCULAR VOLUME 96.3 fL (83.0-97.0); MONOCYTES ABSOLUTE AUTO 1.98 10^3/uL (0.00-1.50); MONOCYTES PERCENT AUTO 11.6 % (0-10); NEUTROPHILS PERCENT AUTO 82.2 % (41-71); PLATELET COUNT,PLT 246 10^3/uL (150-400); RED BLOOD CELL COUNT 4.93 x10^6/uL (4.00-5.50); WHITE BLOOD CELL COUNT,WBC 17.1 10^3/uL (4.0-11.0)
[2024-09-25] MEDS ORDERED: Ondansetron 4 MG/2 ML SDV IV PRN (15:08)
[2024-09-25] MEDS ORDERED: Ondansetron 4 MG Tab.DIS PO PRN (15:08)
[2024-09-25] MEDS ORDERED: Loratadine 10 MG Tab PO PRN (15:08)
[2024-09-25] MEDS ORDERED: Morphine 2 MG/ML SYRINGE IVPUSH PRN (15:08)
[2024-09-25] MEDS: Sodium Chloride 0.9% 1,000 ML IV SCH (17:13)
[2024-09-25 19:14] LABS: BILIRUBIN TOTAL 0.3 mg/dL (0.0-1.0); CALCIUM 7.9 mg/dL (8.4-10.1); EST CRCL DRUG DOSING (CG) 26.49 mL/min; POTASSIUM,K 3.2 mEq/L (3.5-5.0); PROTEIN TOTAL,TP 6.7 g/dL (6.4-8.2)
[2024-09-25] MEDS: Potassium Chloride 20 MEQ Tab.ER PO ONE (19:30)
[2024-09-26] MEDS: Loperamide 2 MG Cap PO PRN (01:05)
[2024-09-26 01:44] LABS: APPEARANCE,URINE CLEAR (CLEAR); BILIRUBIN,URINE NEGATIVE (NEGATIVE); COLOR,URINE YELLOW (YELLOW); GLUCOSE,URINE NEGATIVE (NEGATIVE); KETONES,URINE NEGATIVE (NEGATIVE); LEUKOCYTE ESTERASE,URINE NEGATIVE (NEGATIVE); NITRITE,URINE NEGATIVE (NEGATIVE); OCCULT BLOOD,URINE MODERATE (NEGATIVE); PH,URINE 5.5 (4.5-8.0); PROTEIN,URINE TRACE mg/dL (NEGATIVE); UROBILINOGEN,URINE 0.2 EU/dL (0.2-1.0)
[2024-09-26 01:45] LABS: BACTERIA,URINE OCCASIONAL /HPF (NOT SEEN); RBC,URINE 0-5 /HPF (0-5); SQUAMOUS EPITHELIAL CELLS,UR NOT SEEN /HPF (NOT SEEN); WBC,URINE NOT SEEN /HPF (0-5)
[2024-09-26] MEDS: Acetaminophen 325 MG Tab PO PRN (03:21)
[2024-09-26 07:27] LABS: BASOPHILS ABSOLUTE AUTO 0.03 10^3/uL (0.00-0.50); BASOPHILS PERCENT AUTO 0.3 % (0-1); HEMATOCRIT 38.8 % (37.0-47.0); HEMOGLOBIN 13.3 g/dL (12.0-16.0); IMMATURE GRAN ABSOLUTE AUTO 0.03 10^3/uL (0.00-0.49); IMMATURE GRAN PERCENT AUTO 0.3 % (0.0-4.9); LYMPHOCYTES ABSOLUTE AUTO 0.99 10^3/uL (0.60-5.00); LYMPHOCYTES PERCENT AUTO 9.5 % (24-44); MEAN CORPUSCULAR HEMOGLOBIN 33.6 pg (27.0-32.0); MEAN CORPUSCULAR HGB CONC 34.3 g/dL (32.0-36.0); MONOCYTES ABSOLUTE AUTO 1.16 10^3/uL (0.00-1.50); MONOCYTES PERCENT AUTO 11.2 % (0-10); NEUTROPHILS ABSOLUTE AUTO 8.18 x10^3/uL (1.80-8.00); NEUTROPHILS PERCENT AUTO 78.7 % (41-71); PLATELET COUNT,PLT 154 10^3/uL (150-400); RED BLOOD CELL COUNT 3.96 x10^6/uL (4.00-5.50); WHITE BLOOD CELL COUNT,WBC 10.4 10^3/uL (4.0-11.0)
[2024-09-26] MEDS: Calcium Carbonate 500 MG Tab.Chew PO SCH (07:46)
[2024-09-26] MEDS: Lisinopril 20 MG Tab PO SCH (07:46)
[2024-09-26] MEDS: Cholecalciferol (Vitamin D3) 5,000 UNIT Tab PO SCH (07:46)
[2024-09-26] MEDS: atorvaSTATin 10 MG Tab PO SCH (07:46)
[2024-09-26] MEDS: Multivitamin Tab PO SCH (07:46)
[2024-09-26 08:03] LABS: ALBUMIN 2.9 g/dL (3.4-5.0); BILIRUBIN TOTAL 0.3 mg/dL (0.0-1.0); CREATININE 1.2 mg/dL (0.6-1.0); EST CRCL DRUG DOSING (CG) 44.16 mL/min; MAGNESIUM 1.6 mg/dL (1.8-2.4); PROTEIN TOTAL,TP 6.6 g/dL (6.4-8.2)
[2024-09-26] MEDS: Magnesium Oxide 400 MG Tab PO SCH (11:28)
[2024-09-26] MEDS: metroNIDAZOLE/Normal Saline 500 MG in Premix Bag 1 BAG IV SCH (14:00)
[2024-09-26] MEDS: Lactobacillus Rhamnosus GG (Probiotic) Cap PO SCH (19:32)
[2024-09-26 22:41] LABS: URINE SODIUM 63 mEq/L
[2024-09-27 07:16] LABS: ALBUMIN 2.7 g/dL (3.4-5.0); BILIRUBIN TOTAL 0.2 mg/dL (0.0-1.0); CALCIUM 8.2 mg/dL (8.4-10.1); CREATININE 0.8 mg/dL (0.6-1.0); EST CRCL DRUG DOSING (CG) 66.24 mL/min; MAGNESIUM 1.4 mg/dL (1.8-2.4); POTASSIUM,K 3.4 mEq/L (3.5-5.0); PROTEIN TOTAL,TP 6.6 g/dL (6.4-8.2)
[2024-09-27 07:23] LABS: BASOPHILS ABSOLUTE AUTO 0.03 10^3/uL (0.00-0.50); BASOPHILS PERCENT AUTO 0.4 % (0-1); HEMATOCRIT 36.7 % (37.0-47.0); HEMOGLOBIN 12.6 g/dL (12.0-16.0); IMMATURE GRAN ABSOLUTE AUTO 0.03 10^3/uL (0.00-0.49); IMMATURE GRAN PERCENT AUTO 0.4 % (0.0-4.9); LYMPHOCYTES ABSOLUTE AUTO 0.92 10^3/uL (0.60-5.00); LYMPHOCYTES PERCENT AUTO 11.9 % (24-44); MEAN CORPUSCULAR HEMOGLOBIN 33.1 pg (27.0-32.0); MEAN CORPUSCULAR HGB CONC 34.3 g/dL (32.0-36.0); MEAN CORPUSCULAR VOLUME 96.3 fL (83.0-97.0); MONOCYTES ABSOLUTE AUTO 0.68 10^3/uL (0.00-1.50); MONOCYTES PERCENT AUTO 8.8 % (0-10); NEUTROPHILS ABSOLUTE AUTO 6.09 x10^3/uL (1.80-8.00); NEUTROPHILS PERCENT AUTO 78.5 % (41-71); PLATELET COUNT,PLT 152 10^3/uL (150-400); RED BLOOD CELL COUNT 3.81 x10^6/uL (4.00-5.50); WHITE BLOOD CELL COUNT,WBC 7.8 10^3/uL (4.0-11.0)
[2024-09-27] MEDS: Potassium Chloride 20 MEQ Tab.ER PO SCH (09:35)
[2024-09-27] MEDS: Magnesium Sulfate/Water Premix 2 GM in Premix Bag 1 BAG IV ONE (09:35)
[2024-09-27] MEDS: Levofloxacin 500 MG Tab PO SCH (12:50)
[2024-09-28 07:38] LABS: BASOPHILS ABSOLUTE AUTO 0.03 10^3/uL (0.00-0.50); BASOPHILS PERCENT AUTO 0.7 % (0-1); EOSINOPHILS ABSOLUTE AUTO 0.01 10^3/uL (0.00-1.50); EOSINOPHILS PERCENT AUTO 0.2 % (0-6); HEMATOCRIT 36.8 % (37.0-47.0); HEMOGLOBIN 12.8 g/dL (12.0-16.0); IMMATURE GRAN ABSOLUTE AUTO 0.01 10^3/uL (0.00-0.49); IMMATURE GRAN PERCENT AUTO 0.2 % (0.0-4.9); LYMPHOCYTES ABSOLUTE AUTO 0.89 10^3/uL (0.60-5.00); MEAN CORPUSCULAR HEMOGLOBIN 33.3 pg (27.0-32.0); MEAN CORPUSCULAR HGB CONC 34.8 g/dL (32.0-36.0); MEAN CORPUSCULAR VOLUME 95.8 fL (83.0-97.0); MONOCYTES ABSOLUTE AUTO 0.47 10^3/uL (0.00-1.50); MONOCYTES PERCENT AUTO 11.1 % (0-10); NEUTROPHILS ABSOLUTE AUTO 2.83 x10^3/uL (1.80-8.00); NEUTROPHILS PERCENT AUTO 66.8 % (41-71); PLATELET COUNT,PLT 167 10^3/uL (150-400); RED BLOOD CELL COUNT 3.84 x10^6/uL (4.00-5.50); WHITE BLOOD CELL COUNT,WBC 4.2 10^3/uL (4.0-11.0)
[2024-09-28 08:09] LABS: ALBUMIN 2.7 g/dL (3.4-5.0); BILIRUBIN TOTAL 0.3 mg/dL (0.0-1.0); CALCIUM 8.3 mg/dL (8.4-10.1); CREATININE 0.8 mg/dL (0.6-1.0); EST CRCL DRUG DOSING (CG) 66.24 mL/min; MAGNESIUM 1.5 mg/dL (1.8-2.4); POTASSIUM,K 3.6 mEq/L (3.5-5.0); PROTEIN TOTAL,TP 6.7 g/dL (6.4-8.2)
== END 2024-09-28 10:52 | disposition home or self-care (01) | DRG 683 ==
LOC: CC.ED 12:24 → CC.MS 14:24 → CC.ED 14:28 → CC.MS 14:28 → UNDOADMIN 14:28
PROVIDERS: ADMIT Nurse Practitioner; ATTEND Physician Assistant Medical
DX: N17.9 Acute kidney failure, unspecified (principal); E87.1 Hypo-osmolality and hyponatremia; E78.00 Pure hypercholesterolemia, unspecified; I10 Essential (primary) hypertension; F17.210 Nicotine dependence, cigarettes, uncomplicated; F15.90 Other stimulant use, unspecified, uncomplicated; E86.0 Dehydration; E87.6 Hypokalemia; E86.1 Hypovolemia; R19.7 Diarrhea, unspecified; R05.3 Chronic cough; E83.42 Hypomagnesemia; Z98.891 History of uterine scar from previous surgery; Z79.899 Other long term (current) drug therapy; Z79.02 Long term (current) use of antithrombotics/antiplatelets; Z90.49 Acquired absence of other specified parts of digestive tract; Z90.710 Acquired absence of both cervix and uterus
CPT/HCPCS: 36415; 70450; 71046; 74176; 80053; 81001; 83690; 83735; 83930; 83935; 84300; 84443; 85025; 86140; 87045; 87046; 87428-QW; 87493; 93010; 96361; 96374; 99223; 99232; 99233; 99239; 99285-25; A9270-GY; J1836; J2405; J3475; J7030